=== PATIENT | male | born 2000 | race Caucasian/White ===

== ENCOUNTER 2022-12-15 17:30 | Emergency (ER) | payer BC ==
[2022-12-15 17:44] VITALS: BP 111/70; PULSE 93; RESP 18; TEMP 98.2; BMI 23.7
== END 2022-12-15 21:18 | disposition home or self-care (01) ==
LOC: JERFT 17:30 → JER 17:30
DX: R05.1 Acute cough (principal); R06.02 Shortness of breath; Z20.822 Contact with and (suspected) exposure to COVID-19
CPT/HCPCS: 0241U-QW; 71046-TC-FY; 99284-25